=== PATIENT | male | born 1990 | race American Indian/Alaskan Native ===

== ENCOUNTER 2017-09-10 09:48 | Emergency (ER) | payer OTHER ==
[2017-09-10 10:06] VITALS: BP 113/70
--- NOTE | 2017-09-10 12:09 | Emergency Department Report ---
ED Rash HPI - HPI Chief Complaint: Skin Rash Stated Complaint: SPIDER BITE ON ABD Time Seen by Provider: 09/10/17 12:05 Duration: 4 Days Rash Symptoms: Yes Itching, No Facial Swelling, No Tongue/Oral Swelling, No Breathing Difficulties, No Choking Sensation, No Wheezing/Dyspnea, No Peeling, No Blistering, No Fever, No Lightheaded, No Malaise, No Myalgias Severity: mild Other History: 27-year-old male past medical history bipolar disorder, schizophrenia, asthma presents with complaint of 4 days of itching in his umbilical region with associated rash. Patient states that his nephew has impetigo and he was handling the child earlier this week. Patient has now noted slightly crusty uncomfortable lesions around his umbilicus. Denies fever chills abdominal pain nausea vomiting diarrhea. Patient is awake alert and oriented 3 nontoxic appearing. Denies lesions anywhere else. ED Review of Systems ROS: Stated complaint: SPIDER BITE ON ABD Other details as noted in HPI Constitutional: denies: chills, fever Eyes: denies: eye pain, eye discharge, vision change ENT: denies: ear pain, throat pain Respiratory: denies: cough, shortness of breath, wheezing Cardiovascular: denies: chest pain, palpitations Endocrine: no symptoms reported Gastrointestinal: denies: abdominal pain, nausea, diarrhea Genitourinary: denies: urgency, dysuria Musculoskeletal: denies: back pain, joint swelling, arthralgia Skin: as per HPI, lesions (yellow crusty lesions around the umbilicus 4 days) Neurological: denies: headache, weakness, paresthesias Psychiatric: denies: anxiety, depression Hematological/Lymphatic: denies: easy bleeding, easy bruising ED Past Medical Hx - Past Medical History Previous Medical History?: Yes Hx Psychiatric Treatment: Yes (Bipolar, Schizophrenia) Hx Asthma: Yes - Surgical History Past Surgical History?: Yes Additional Surgical History: right arm - Social History Smoking Status: Current Every Day Smoker Substance Use Type: Marijuana - Medications Home Medications: Home Medications Medication Instructions Recorded Confirmed Last Taken Type Hydrocortisone 1% [Hydrocortisone 1 applicatio TP TID PRN #1 tube 09/10/17 Unknown Rx 1% CREAM] Mupirocin [Bactroban 2% CREAM] 1 applicatio TP TID #1 cream 09/10/17 Unknown Rx Rash Exam - Exam General: Vital signs noted. No distress. Alert and acting appropriately. HEENT: No Periorbital Edema, No Conjuctival Injection, No Chemosis, No Perioral Edema, No Tongue Edema, No Uvular Edema, No Compromised Airway, No Drooling Lungs: Yes Good Air Exchange (Normal Breath Sounds), No Wheezes, No Ronchi, No Stridor, No Cough, No Labored Respirations, No Retractions, No Use of Accessory Muscles, No Other Abnormal Lung Sounds Heart: Yes Regular, No Murmur Skin: Yes Excoriations, Yes Weeping, Yes Encrustations (yellow crusty lesions around the umbilical region), No Urticarial Rash, No Maculopapular Rash, No Morbilliform rash, No Bulla(e), No Tenderness, No Erythema, No Edema, No Other Other: Positive: Abdomen Normal, Neurologic Normal, Musculoskeletal Normal ED Course Vital Signs 09/10/17 10:02 Temperature 97.6 F Pulse Rate 61 Respiratory 17 Rate Blood Pressure 113/70 O2 Sat by Pulse 97 Oximetry ED Medical Decision Making - Medical Decision Making A/P: Impetigo 1-topical mupirocin 2-patient follow up with primary care doctor. I advised him to return to the ED for any fevers chills nausea vomiting abdominal pain and ability to tolerate by mouth or diarrhea. Patient has not any symptoms at this time. No clinical signs of umbilical hernia on clinical exam. Crusty yellow colored lesions suggestive of impetigo around the umbilicus. This is consistent with patient's history of exposure to impetigo. Critical care attestation.: If time is entered above; I have spent that time in minutes in the direct care of this critically ill patient, excluding procedure time. ED Disposition Clinical Impression: Impetigo Disposition: DC-01 TO HOME OR SELFCARE Is pt being admited?: No Does the pt Need Aspirin: No Condition: Stable Instructions: Impetigo (ED) Prescriptions: Hydrocortisone 1% [Hydrocortisone 1% CREAM] 1 applicatio TP TID PRN #1 tube PRN Reason: Itching Mupirocin [Bactroban 2% CREAM] 1 applicatio TP TID #1 cream Referrals: [facility] [Outside] - 3-5 Days [facility] [Outside] - 3-5 Days Forms: Work/School Release Form(ED) Time of Disposition: 12:09
== END 2017-09-10 12:22 | disposition home or self-care (01) ==
LOC: ED 09:48
DX: L01.00 Impetigo, unspecified (principal); F17.200 Nicotine dependence, unspecified, uncomplicated; F12.10 Cannabis abuse, uncomplicated
CPT/HCPCS: 99282